=== PATIENT | female | born 1940 | race Two or more races ===

== ENCOUNTER → 2018-02-26 | Emergency (ER) | payer MEDICARE, MEDICAID ==
[~2018-02-26] VITALS: Ht 152.4 cm; Wt 64.4 kg
[~2018-02-26] MED LIST: ASPIRIN81 MG ORAL; ATENOLOL25 MG ORAL; BRILINTA90 MG PO; LISINOPRIL5 MG ORAL; NORCO 5-325 TA1 EACH ORAL; TYLENOL EXTRA500 MG ORAL; VOLTAREN100 G1 TP; ZANTAC150 MG ORAL
[2018-02-26 14:57] VITALS: BP 150/78
--- NOTE | 2018-02-26 15:14 | Emergency Room Report ---
History of Present Illness General Chief Complaint: Pain Source: Patient Present Illness HPI 77 y.o. F with sig hx of chronic osteoarthritis, here for exacerbation of left wrist pain and right knee. denies fall/injury. pt is rating the pain constnat, 10/10, with radiation, no numbness/tingling. has taken tylenol with minimal improvement. pt has stent placement and can no take NSAID. pt on ASA and brilinta. denies cp, sob, palp. did not take HTN meds today. denies dizziness, SILVA, vision changes. Allergies: Coded Allergies: No Known Allergies (Unverified , 02/26/18) Patient History Past Medical History: see triage record Past Surgical History: unable to obtain Now: No Immunizations: UTD Reviewed Nursing Documentation: PMH: Agreed; PSxH: Agreed Nursing Documentation-PMH Past Medical History: No History, Except For Hx Hypertension: Yes - Stentx2 Review of Systems All Other Systems: negative except mentioned in HPI Physical Exam Vital Signs Date Time Temp Pulse Resp B/P (MAP) Pulse Ox O2 Delivery O2 Flow Rate FiO2 02/26/18 14:47 98.1 102 14 150/78 95 Room Air Sp02 EP Interpretation: reviewed, normal General Appearance: normal inspection, well appearing, no apparent distress, alert, GCS 15, non-toxic Head: normocephalic, atraumatic Eyes: bilateral eye normal inspection, bilateral eye PERRL ENT: normal ENT inspection, hearing grossly normal, normal pharynx Neck: normal inspection, full range of motion, supple Respiratory: normal inspection, lungs clear, no rhonchi, no retraction, no wheezing Cardiovascular #1: normal inspection, regular rate, rhythm, no edema, no gallop , no murmur Cardiovascular #2: 2+ dorsalis pedis (R), 2+ dorsalis pedis (L) Gastrointestinal: normal inspection, normal bowel sounds, non tender, soft Genitourinary: deferred Musculoskeletal: back normal, non-tender, no calf tenderness, pelvis stable, inflammation - right knee and left wrist, other - nodules over left fingers Neurologic: normal inspection, alert, oriented x3, responsive, sales recruiting coordinator III-XII nml as tested Psychiatric: normal inspection, judgement/insight normal, memory normal Skin: normal inspection, normal color, no rash, warm/dry Lymphatic: normal inspection, no adenopathy Medical Decision Making PA Attestation all diagnosis and treatment plans were reviewed and discussed with my supervising physician Dr. Arellano Diagnostic Impression: Primary Impression: Chronic osteoarthritis ER Course 77 y.o. F with sig hx of chronic osteoarthritis, here for exacerbation of left wrist pain and right knee. denies fall/injury. pt is rating the pain constnat, 10/10, with radiation, no numbness/tingling. has taken tylenol with minimal improvement. pt has stent placement and can no take NSAID. pt on ASA and brilinta. denies cp, sob, palp. did not take HTN meds today. denies dizziness, SILVA, vision changes. Ddx considered but are not limited to chronic osteorthritis, osteoprosis Vital signs: are WNL, pt. is afebrile H&PE are most consistent with chronic osteoarthritis ORDERS: norco 5mg #10, tylenol 500mg #30, voltaren gel ED INTERVENTIONS: None required at this time. DISCHARGE: At this time pt. is stable for d/c to home. Will provide printed patient care instructions, and any necessary prescriptions. Care plan and follow up instructions have been discussed with the patient prior to discharge. Last Vital Signs Date Time Temp Pulse Resp B/P (MAP) Pulse Ox O2 Delivery O2 Flow Rate FiO2 02/26/18 14:57 98.1 102 14 150/78 95 Room Air Disposition: HOME, SELF-CARE Condition: Stable Scripts Diclofenac Sodium (VOLTAREN) 100 Gm Gel..gram. 1 GM TP BID, #40 GM Prov: Latasha Bautista 02/26/18 Acetaminophen* (TYLENOL EXTRA STRENGTH*) 500 Mg Tablet 500 MG ORAL Q6H PRN for Mild Pain/Temp > 100.5, #30 TAB 0 Refills Prov: Latasha Bautista 02/26/18 Hydrocodone Bit/Acetaminophen 5-325* (NORCO 5-325*) 1 Each Tablet 1 TAB ORAL Q6H PRN for For Pain, #10 TAB 0 Refills Prov: Latasha Bautista 02/26/18 Patient Instructions: Osteoarthritis Additional Instructions: follow-up with primary care provider for physical therapy referral and also assessment of 6/bone density scan for evaluation of possible osteoporosis. Injections of steroids in the knee advised. Patient to avoid taking nonsteroidal anti-inflammatories due to stent placement and coronary medication for sensory labs and aspirin Latasha Bautista Feb 26, 2018 15:14
[2018-02-26 15:43] VITALS: BP 150/78
== END | disposition home or self-care (01) ==
LOC: EMR 15:47
DX: M19.90 Unspecified osteoarthritis, unspecified site (principal); M25.532 Pain in left wrist; M25.561 Pain in right knee; I10 Essential (primary) hypertension; Z87.891 Personal history of nicotine dependence; Z98.62 Peripheral vascular angioplasty status
CPT/HCPCS: 99283